=== PATIENT | male | born 1960 | race Caucasian/White ===

== ENCOUNTER 2018-05-22 21:30 | Observation (INO) | payer BC, OTHER ==
[~2018-05-22] VITALS: Ht 180.3 cm; Wt 90.9 kg
[2018-05-22] MEDS ORDERED: BYST5TAB2 (21:46)
[2018-05-22] MEDS ORDERED: HYDR12CA (21:46)
[2018-05-22] MEDS ORDERED: ATOR1TAB21 (21:46)
[2018-05-22] MEDS ORDERED: OLME40TA (21:46)
[2018-05-22 22:09] LABS: BASO % 0.6 % (0.0-1.0); EOS % 0.3 % (0.0-3.0); HEMATOCRIT 41.3 % (42.0-52.0); HEMOGLOBIN 14.7 g/dl (13.5-17.5); LYMPH # 1.4 10^3/uL (1.5-4.5); LYMPH % 20.4 % (24.0-44.0); MEAN CORPUSCULAR HEMOGLOBIN 31.5 pg (27.0-33.0); MEAN CORPUSCULAR HGB CONC 35.6 g/dl (32.0-36.5); MEAN CORPUSCULAR VOLUME 88.4 fl (80.0-96.0); MONO % 14.2 % (0.0-5.0); NEUTROPHILS # 4.5 10^3/uL (1.8-7.7); NEUTROPHILS % 64.2 % (36.0-66.0); PLATELET COUNT, AUTOMATED 140 10^3/uL (150-450); RED BLOOD COUNT 4.67 10^6/uL (4.30-6.10)
[2018-05-22] MEDS ORDERED: KETOROLAC 30 MG/ML VIAL (J1885) IV ONE (22:30)
[2018-05-22] MEDS ORDERED: ONDANSETRON 4MG/2ML VIAL (J2405) IV ONE (22:30)
[2018-05-22] MEDS ORDERED: NS 1,000 ML IV ONE (22:30)
[2018-05-22 22:31] LABS: ALT/SGPT 70 U/L (12-78); BILIRUBIN,DIRECT 0.2 MG/DL (0.0-0.2); BILIRUBIN,TOTAL 0.7 MG/DL (0.2-1.0); BLOOD UREA NITROGEN 14 MG/DL (7-18); CALCIUM LEVEL 8.7 MG/DL (8.5-10.1); CARBON DIOXIDE LEVEL 27 MEQ/L (21-32); CHLORIDE LEVEL 100 MEQ/L (98-107); GLOMERULAR FILTRATION RATE > 60.0 (>56); GLUCOSE, FASTING 111 MG/DL (70-100); LIPASE 202 U/L (73-393); POTASSIUM SERUM 3.3 MEQ/L (3.5-5.1); SODIUM LEVEL 139 MEQ/L (136-145); TOTAL PROTEIN 7.6 GM/DL (6.4-8.2)
[2018-05-22] MEDS ORDERED: MORPHINE 4 MG/ML 1ML VIAL/SYRINGE (J2270) IV ONE (23:45)
--- NOTE | 2018-05-22 23:51 | REPVR ---
EXAM: US Abdomen Limited, Right Upper Quadrant EXAM DATE/TIME: 05/22/2018 11:07 PM CLINICAL HISTORY: 58 years old, male; Pain; Abdominal pain; Acute; Additional info: Ruq pain TECHNIQUE: Real-time ultrasound of the abdomen with image documentation. Examination was focused on the right upper quadrant. COMPARISON: GALLBLADDER US 06/22/2012 8:40 AM FINDINGS: Liver: There is a diffuse decrease in hepatic parenchymal density, consistent with fatty infiltration. Gallbladder: Hydropic gallbladder. Small stones or gravel demonstrated within the lumen of the gallbladder Positive sonographic Olivo sign. Common bile duct: Common bile duct measures 5.3 millimeters. Pancreas: Pancreas partially obscured by overlying bowel gas. Right kidney: Right kidney measures 13.7 x 6.2 x 5.8 cm. IMPRESSION: 1. Hydropic gallbladder. Small stones or gravel demonstrated within the lumen of the gallbladder Positive sonographic Olivo sign. Findings consistent with acute cholecystitis. 2. There is a diffuse decrease in hepatic parenchymal density, consistent with fatty infiltration. Electronically signed by: Nic Kaplan On 05/22/2018 23:50:51 PM
[2018-05-23] MEDS ORDERED: LR 1,000 ML IV SCH (01:56)
[2018-05-23] MEDS ORDERED: ACETAMINOPHEN TAB 650MG DOSE (2X325MG) PO PRN (02:00)
[2018-05-23] MEDS ORDERED: NORCO, ANEXSIA 5/325MG TABLET (HYDROcodone/ACETAMINOPHEN) PO PRN (02:00)
[2018-05-23] MEDS ORDERED: MORPHINE 4 MG/ML 1ML VIAL/SYRINGE (J2270) IV PRN (02:00)
[2018-05-23] MEDS ORDERED: KETOROLAC 30 MG/ML VIAL (J1885) IV PRN (02:00)
[2018-05-23] MEDS ORDERED: ONDANSETRON 4MG/2ML VIAL (J2405) IV PRN (02:00)
[2018-05-23] MEDS ORDERED: VITMTA PO (02:24)
[2018-05-23] MEDS ORDERED: HYDR12CA PO (02:24)
[2018-05-23] MEDS ORDERED: FISH1000 PO (02:24)
[2018-05-23] MEDS ORDERED: OLME40TA PO (02:24)
[2018-05-23] MEDS ORDERED: ATOR1TAB21 PO (02:24)
[2018-05-23] MEDS ORDERED: BYST5TAB2 PO (02:24)
[2018-05-23] MEDS ORDERED: ALEV220T26 PO (02:24)
[2018-05-23 08:00] VITALS: BP 143/87
[2018-05-25] MEDS ORDERED: HYDR-3715 PO (11:32)
--- NOTE | 2018-08-01 03:02 | IPN ---
DATE: 05/23/2018 HISTORY: The patient was placed on observation early this morning for upper abdominal pain with known gallstones. His laboratory studies were unremarkable. His gallbladder showed a distended gallbladder with some small stones. On my evaluation at the time of admission he had reported that he was feeling much better. VITAL SIGNS: Show that he has remained afebrile since placement on observation. His pulse is in the 60s and 70s and his blood pressure is good. Room air oxygen saturation is normal. Intake and output is not recorded adequately. PHYSICAL EXAMINATION: The patient is sitting up looking much more comfortable. He is alert and oriented. Heart exam shows a regular rhythm. The lungs are clear. The abdomen is soft. He has bowel sounds present. He has no significant tenderness identified on palpation at this time. IMPRESSION: The patient reports that he is feeling well with resolution of his discomfort. His examination is benign. PLAN: The patient will be discharged. Presumably this was an attack of severe biliary colic. I have recommended that he follow up in my office to consider elective scheduling of a cholecystectomy. He will continue all his usual medications and contact the office for followup. I did recommend a low-fat diet and advised him to return to the emergency department if he notes recurrence of his symptoms.
== END 2018-05-23 09:30 | disposition home or self-care (01) ==
LOC: M ED 21:30 → M ED INP 21:31
PROVIDERS: ADMIT Surgery; ATTEND Surgery
DX: K80.20 Calculus of gallbladder without cholecystitis without obstruction (principal); K76.0 Fatty (change of) liver, not elsewhere classified; I10 Essential (primary) hypertension; E78.49 Other hyperlipidemia; Z79.899 Other long term (current) drug therapy
CPT/HCPCS: 76705; 80048; 80076; 83690; 85025; 96361; 96374; 96375; 99284; J1885; J2270; J2405

== ENCOUNTER 2018-05-24 09:30 | Day surgery (SDC) | payer BC ==
[2018-05-24] VITALS (7 sets, daily range): BP systolic 140–162; BP diastolic 81–92
[~2018-05-24] VITALS: Ht 185.4 cm; Wt 90.9 kg
[~2018-05-24 09:30] MED LIST: ALEV220T26 PO; ATOR1TAB21; ATOR1TAB21 PO; BYST5TAB2; BYST5TAB2 PO; FISH1000 PO; HYDR12CA; HYDR12CA PO; OLME40TA; OLME40TA PO; VITMTA PO
[2018-05-24] MEDS ORDERED: NS 1,000 ML IV ONE (09:45)
[2018-05-24] MEDS ORDERED: PANTOPRAZOLE 40MG INJ (PROTONIX) (C9113) IV ONE (09:45)
[2018-05-24 10:19] LABS: BASO % 0.2 % (0.0-1.0); EOS # 0.1 10^3/uL (0.0-0.50); EOS % 1.1 % (0.0-3.0); HEMATOCRIT 43.7 % (42.0-52.0); LYMPH # 1.1 10^3/uL (1.5-4.5); LYMPH % 24.8 % (24.0-44.0); MEAN CORPUSCULAR HEMOGLOBIN 30.5 pg (27.0-33.0); MEAN CORPUSCULAR HGB CONC 34.3 g/dl (32.0-36.5); MONO # 0.6 10^3/uL (0.0-0.8); MONO % 12.7 % (0.0-5.0); NEUTROPHILS # 2.8 10^3/uL (1.8-7.7); PLATELET COUNT, AUTOMATED 131 10^3/uL (150-450); RED BLOOD COUNT 4.91 10^6/uL (4.30-6.10); WHITE BLOOD COUNT 4.6 10^3/uL (4.0-10.0)
[2018-05-24 10:52] LABS: ALBUMIN 3.8 GM/DL (3.2-5.2); ALT/SGPT 54 U/L (12-78); AMYLASE 23 U/L (25-115); BILIRUBIN,DIRECT 0.3 MG/DL (0.0-0.2); BILIRUBIN,TOTAL 0.9 MG/DL (0.2-1.0); BLOOD UREA NITROGEN 13 MG/DL (7-18); CALCIUM LEVEL 8.6 MG/DL (8.5-10.1); CARBON DIOXIDE LEVEL 27 MEQ/L (21-32); CHLORIDE LEVEL 105 MEQ/L (98-107); CREATININE FOR GFR 0.79 MG/DL (0.70-1.30); GLOMERULAR FILTRATION RATE > 60.0 (>56); GLUCOSE, FASTING 89 MG/DL (70-100); LIPASE 178 U/L (73-393); POTASSIUM SERUM 3.8 MEQ/L (3.5-5.1); SODIUM LEVEL 140 MEQ/L (136-145); TOTAL PROTEIN 7.5 GM/DL (6.4-8.2)
--- NOTE | 2018-05-24 11:20 | REP ---
RIGHT UPPER QUADRANT ULTRASOUND: Real-time sonographic evaluation of the right upper quadrant performed and compared to prior study of 05/22/2018. Gallbladder is significantly distended. It contains sludge and stones. There is gallbladder wall thickening up to 5 mm. Patient is tender at that location. Findings suggest cholecystitis. Common bile duct is upper limits of normal at 7 mm. There is mild diffuse increased echotexture of the liver suggesting some degree of diffuse fibrofatty infiltration. No gross liver or pancreatic mass is seen. Pancreas is not optimally seen due to overlying bowel gas. Right kidney demonstrates no hydronephrosis with length of 12.2 cm. IMPRESSION: Distended gallbladder contains sludge and stones and there is mild diffuse wall thickening. Patient is tender at that location. Findings suggest cholecystitis. Common bile duct upper limits of normal at 7 mm. Electronically Signed by Italo De MD 05/24/2018 05:03 P
[2018-05-24] MEDS ORDERED: BUPIVACAINE HCL 0.25% 30 ML VIAL As Ordered ONE (11:55)
[2018-05-24] MEDS: LR 1,000 ML IV SCH ×2 (11:59→18:15)
[2018-05-24] MEDS ORDERED: LIDOCAINE 2% INJ 100 MG/5 ML SDV (FOR ANES.) As Ordered ONE (12:27)
[2018-05-24] MEDS ORDERED: ROCURONIUM BROMIDE 50 MG/5 ML VIAL As Ordered ONE (12:27)
[2018-05-24] MEDS ORDERED: ONDANSETRON 4MG/2ML VIAL (J2405) As Ordered ONE ×2 (12:28→14:24)
[2018-05-24] MEDS ORDERED: fentaNYL 250 MCG/5 ML INJECTION (J3010) As Ordered ONE (12:28)
[2018-05-24] MEDS ORDERED: MIDAZOLAM INJ 2 MG/2 ML VIAL (J2250) As Ordered ONE (12:28)
[2018-05-24] MEDS ORDERED: PROPOFOL 200 MG/20 ML VIAL As Ordered ONE (12:28)
[2018-05-24] MEDS ORDERED: dexameTHASONE 4 MG/ML 1ML VIAL (J1100) As Ordered ONE ×2 (12:28→12:29)
[2018-05-24] MEDS ORDERED: cefoTEtan DISODIUM 2 GM in D5W MINI-BAG PLUS 50 ML IV ONE (12:30)
[2018-05-24] MEDS ORDERED: cefoTEtan INJ 2GM VIAL (S0074 PER 500MG) As Ordered ONE (13:45)
[2018-05-24] MEDS ORDERED: ePHEDrine SULFATE 25 MG/5 ML(5MG/ML) SYRINGE As Ordered ONE (14:01)
[2018-05-24] MEDS ORDERED: KETOROLAC 60 MG/2 ML VIAL (J1885) As Ordered ONE (14:16)
[2018-05-24] MEDS ORDERED: NEOSTIGMINE 10 MG/10 ML VIAL (J2710) As Ordered ONE (14:16)
[2018-05-24] MEDS ORDERED: HYDROmorphone HCL 2 MG/ML 1ML VIAL (J1170) As Ordered ONE (14:16)
[2018-05-24] MEDS ORDERED: GLYCOPYRROLATE INJ 0.2 MG/ML 2 ML VIAL As Ordered ONE (14:16)
[2018-05-24] MEDS ORDERED: BUPIVACAINE LIPOSOME/PF 1.3% 20ML VIAL (13.3MG/ML)(EXPAREL)(C9290 PER1MG) As Ordered ONE (15:09)
[2018-05-24] MEDS ORDERED: IBUPROFEN 600 MG TAB PO PRN (16:00)
[2018-05-24] MEDS ORDERED: MORPHINE 4 MG/ML 1ML VIAL/SYRINGE (J2270) IV PRN (16:00)
[2018-05-24] MEDS ORDERED: ACETAMINOPHEN TAB 650MG DOSE (2X325MG) PO PRN (16:00)
[2018-05-24] MEDS ORDERED: ONDANSETRON 4MG/2ML VIAL (J2405) IV PRN (16:15)
[2018-05-24] MEDS ORDERED: NORCO, ANEXSIA 5/325MG TABLET (HYDROcodone/ACETAMINOPHEN) PO PRN (16:15)
[2018-05-24] MEDS ORDERED: LR 1,000 ML IV SCH (16:15)
[2018-05-24] MEDS ORDERED: fentaNYL 100 MCG/2 ML INJECTION (J3010) IV PRN (16:15)
[2018-05-24] MEDS: NORCO, ANEXSIA 5/325MG TABLET (HYDROcodone/ACETAMINOPHEN) PO PRN ×2 (18:33→22:21)
[2018-05-25 02:00] VITALS: BP 122/76
[2018-05-25] MEDS: LR 1,000 ML IV SCH (03:43)
[2018-05-25 06:00] VITALS: BP 123/77
--- NOTE | 2018-05-25 07:33 | RO ---
DATE OF PROCEDURE: 05/24/2018 PREOPERATIVE DIAGNOSIS: Cholelithiasis with acute cholecystitis. POSTOPERATIVE DIAGNOSIS: Cholelithiasis with acute cholecystitis. PROCEDURE PERFORMED: Laparoscopic cholecystectomy. SURGEON: Dr. Lamont Mackey [employer] SALES CONSULTANT: Robin Aguirre MS III ANESTHESIA: General. INDICATIONS FOR THE PROCEDURE: The patient is a 58-year-old man with known cholelithiasis. He presented on May 22 with an episode of severe upper abdominal pain. I was consulted. It was unclear if this represented just a somewhat prolonged attack of biliary colic or early acute cholecystitis. He seemed to be improved on the morning of May 23 and was discharged home. The patient reported that he developed recurrence of his pain on the evening of the and returned to the emergency department with some persistent pain on the morning of May 24. A repeat ultrasound showed a dilated gallbladder with some gallbladder wall thickening consistent with early acute cholecystitis. He is now for a laparoscopic cholecystectomy. OPERATIVE PROCEDURE: The patient was placed under general endotracheal anesthesia. The patient's abdomen was prepped and draped in a sterile fashion. 0.25% Marcaine was infiltrated at each of the trocar sites. A short supraumbilical midline incision was made. This was deepened to the fascia. A Veress needle was inserted and after a positive hanging drop test the abdomen was insufflated with carbon dioxide gas. A short longitudinal fascial incision was made and an 11 mm trocar was then placed along the midline without difficulty. Initial inspection showed a row of adhesions along the midline beginning just above the insertion site of the supraumbilical trocar and extending inferiorly toward the pelvis. He did have an old low midline scar from a prior open appendectomy. There did not appear to be any significant adhesions in the upper abdomen. Examination of the gallbladder revealed this to be tensely distended and markedly erythematous and edematous consistent with acute cholecystitis. The liver and stomach appeared normal. A 5 mm trocar was placed in the left upper quadrant. Two 5 mm trocars were placed in the right upper quadrant. The patient was tilted to a reverse Trendelenburg position and rolled somewhat to the left. The gallbladder was aspirated using an aspirating needle and was then grasped and elevated. There was some prominent fibrofatty tissue around the area of the gallbladder neck. The peritoneum was opened widely using the hook cautery and dissection proceeded carefully. There was significant edema noted in the pericholecystic tissues. A small vessel was identified that appeared to extend up onto the gallbladder and this was divided with cautery. With further dissection, the cholecystic artery was clearly identified coming up on the medial aspect of the gallbladder. This was clipped and divided. With further dissection, the cystic duct was clearly identified and this was clipped and divided. Some remaining tissues around the gallbladder neck were divided with the hook cautery. The gallbladder was then dissected free from the gallbladder bed using the spatula cautery. The gallbladder was not perforated in the course of dissection. The gallbladder was placed in an Endopouch. The right upper quadrant was irrigated and inspected. There were two small bleeding points on the gallbladder bed and these were controlled with the cautery. Repeat inspection revealed no evidence of bleeding or bile leak. The right upper quadrant was thoroughly irrigated and the irrigation was removed. Final inspection again showed no bleeding or bile leak. The patient was returned to a flat position. The abdomen was deflated and the trocars were all removed. The gallbladder was recovered through the supraumbilical site. This necessitated extending the incision very slightly to allow passage of the gallbladder. This was sent for permanent pathology. The fascia at the supraumbilical site was closed with interrupted simple suture. The wounds were then infiltrated with a mixture of 20 mL of Exparel with 10 mL of 0.25% Marcaine. This was infiltrated widely around all of the incisions. The skin incisions were then closed with buried #5-0 Vicryl. Dermabond was applied over the incisions. The patient was then awakened in the operating room, extubated and moved to the recovery room in stable condition.
[2018-05-25] MEDS ORDERED: NEBIVOLOL 5 MG TAB (BYSTOLIC) PO SCH (09:00)
[2018-05-25] MEDS ORDERED: hydroCHLOROthiazide 12.5 MG CAPSULE PO SCH (09:00)
[2018-05-25] MEDS ORDERED: ATORVASTATIN 20 MG TAB PO SCH (09:00)
[2018-05-25 09:18] VITALS: BP 123/77
[2018-05-25 10:00] VITALS: BP 144/86
[2018-05-25] MEDS ORDERED: NORCOTAB PO (11:32)
--- NOTE | 2018-05-25 19:00 | HPE ---
DATE OF ADMISSION: 05/23/2018 DIAGNOSIS: Prolonged biliary colic versus early acute cholecystitis. HISTORY OF PRESENT ILLNESS: The patient is a very pleasant 58-year-old man who had presented to the emergency room on the evening of May 22 complaining of upper abdominal pain. He reported that the pain had started at about 06:00 p.m. on the . He arrived at the emergency department at 2130. The patient has a history of known gallstones and has had some infrequent attacks of upper abdominal pain. I had actually seen him back in 2012 after one such attack and after discussion, he had elected not to proceed with elective cholecystectomy. On this occasion he described pain in the right upper quadrant going around the back as well as some nausea but had no vomiting. In the emergency department he underwent evaluation with some laboratory studies which showed a normal white blood cell count and differential. His liver function tests were normal. A gallbladder ultrasound was obtained which was interpreted by the radiologist as showing a distended gallbladder with some small stones or gravel within the lumen. There reportedly was a positive sonographic Olivo sign. There was no gallbladder wall thickening described. I was consulted. On my evaluation the patient reported that he was feeling much better. He had some pressure or fullness still in the right upper quadrant but on exam he had minimal tenderness. It was unclear if this represented a prolonged attack of biliary colic or perhaps early acute cholecystitis and the plan was to place him on observation status overnight to see how things would shake out. ALLERGIES: The patient reports NO KNOWN DRUG ALLERGIES. MEDICATIONS: Medications at the time of admission include atorvastatin 20 mg p.o. daily, hydrochlorothiazide 12.5 mg p.o. daily multivitamin 1 tablet daily, naproxen 440 mg po twice daily as needed for pain and nebivolol 5 mg by mouth daily and olmesartan medoxomil 40 mg by mouth daily. SURGICAL HISTORY: Significant for a appendectomy in the distant past. MEDICAL HISTORY: Significant for hypertension and hyperlipidemia. SOCIAL HISTORY: The patient is a nonsmoker. He does admit to occasional alcohol. He is and his accompanied him to the emergency department. FAMILY HISTORY: There is a history of gallstones and his sister and mother have both had surgery. REVIEW OF SYSTEMS: Reveals no history of chest pain or palpitations. He denies any shortness of breath, cough or wheezing. He has had no melena, hematochezia, peptic ulcer disease, hepatitis, pancreatitis or yellow jaundice. He denies any bone or joint issues currently. There is no history of DVT or pulmonary embolus. PHYSICAL EXAM: Reveals a pleasant man in no acute distress at the time of my exam. His most recent vital signs show him to be afebrile with a pulse of 70. His temperature had been elevated at the time of presentation but this has come down. He is alert, oriented and cooperative. Skin: Is warm and dry. Sclerae are anicteric. Neck is without mass. Heart exam shows a regular rate and rhythm. The lungs are clear to auscultation bilaterally. The abdomen is flat. He has an old low midline scar. He does have some bowel sounds present in all four quadrants. The abdomen is soft throughout. He has some very mild direct tenderness on deep palpation in the right subcostal area. Extremities are without edema. He has palpable radial and pedal pulses. LABS: His laboratory studies showed a white count of 7000 with a hemoglobin of 15, hematocrit of 41 and platelet count of 140,000. Differential count was without significant abnormality. Chemistry profile showed his potassium minimally depressed at 3.3 and his glucose minimally elevated at 111, it was otherwise normal. The ultrasound result is as noted in the history of present illness. IMPRESSION: Right upper quadrant pain possibly prolonged biliary colic versus early acute cholecystitis. The patient reports that his discomfort has diminished markedly. He has now had any discomfort for approximately 6-8 hours. PLAN: The patient will be placed on observation status overnight. If he has continuing pain or tenderness in the morning than proceeding with laparoscopic cholecystectomy would be reasonable. If his discomfort has resolved and he is able to tolerate a diet we will discharge him home. He is scheduled to go on vacation this next weekend with travel to [facility] this following Monday. He will not be started on antibiotics at this point. I will keep him nothing by mouth and give him IV fluids overnight and analgesics as necessary.
== END 2018-05-25 11:53 | disposition home or self-care (01) ==
LOC: M ED 09:30 → M SDC 11:59 → M MSPAV 16:50 → M SDC 05-25 11:53
PROVIDERS: ATTEND Surgery
DX: K80.12 Calculus of gallbladder with acute and chronic cholecystitis without obstruction (principal); I10 Essential (primary) hypertension; E78.5 Hyperlipidemia, unspecified; K21.9 Gastro-esophageal reflux disease without esophagitis
CPT/HCPCS: 47562; 76705; 80048; 80076; 82150; 83690; 85025; 88304; 96374; 99284; C9113; C9290; J1100; J1170; J1885; J2250; J2405; J2710; J3010

== ENCOUNTER 2019-05-28 09:14 | Inpatient (IN) | payer BC ==
[~2019-05-28] VITALS: Ht 185.4 cm; Wt 94.9 kg
[~2019-05-28 09:14] MED LIST changes: +HYDR-3715 PO
[2019-05-28 10:42] LABS: BASO % 0.3 % (0.0-1.0); EOS % 0.3 % (0.0-3.0); HEMATOCRIT 45.4 % (42.0-52.0); HEMOGLOBIN 16.1 g/dl (13.5-17.5); LYMPH # 1.5 10^3/uL (1.5-5.0); LYMPH % 14.6 % (24.0-44.0); MEAN CORPUSCULAR HEMOGLOBIN 31.3 pg (27.0-33.0); MEAN CORPUSCULAR HGB CONC 35.5 g/dl (32.0-36.5); MEAN CORPUSCULAR VOLUME 88.3 fl (80.0-96.0); MONO # 0.7 10^3/uL (0.0-0.8); MONO % 7.1 % (0.0-5.0); NEUTROPHILS # 7.8 10^3/uL (1.5-8.5); NEUTROPHILS % 77.3 % (36.0-66.0); PLATELET COUNT, AUTOMATED 185 10^3/uL (150-450); RED BLOOD COUNT 5.14 10^6/uL (4.30-6.10); WHITE BLOOD COUNT 10.1 10^3/uL (4.0-10.0)
[2019-05-28] MEDS ORDERED: NS 1,000 ML IV ONE ×2 (11:00→13:30)
[2019-05-28] MEDS ORDERED: KETOROLAC 30 MG/ML VIAL (J1885) IV ONE (11:00)
[2019-05-28] MEDS ORDERED: ONDANSETRON 4MG/2ML VIAL (J2405) IV ONE (11:00)
[2019-05-28] MEDS ORDERED: PANTOPRAZOLE 40MG INJ (PROTONIX) (C9113) IV ONE (11:00)
[2019-05-28 11:02] LABS: APPEARANCE, URINE HAZY (CLEAR); BACTERIA, URINE AUTO NEGATIVE (NEGATIVE); BILIRUBIN, URINE AUTO NEGATIVE (NEGATIVE); BLOOD, URINE BLOOD NEGATIVE (NEGATIVE); COLOR, URINE AMBER (YELLOW); GLUCOSE, URINE (UA) AUTO NEGATIVE (NEGATIVE); KETONE, URINE AUTO 2+ mg/dL (NEGATIVE); LEUKOCYTE ESTERASE, URINE AUTO NEGATIVE (NEGATIVE); MUCUS, URINE LARGE (NEGATIVE); NITRITE, URINE AUTO NEGATIVE (NEGATIVE); PROTEIN, URINE AUTO 1+ mg/dL (NEGATIVE); RBC, URINE AUTO 4 /HPF (0-3); SPECIFIC GRAVITY URINE AUTO 1.033 (1.002-1.035); SQUAMOUS EPITHELIAL CELL UR AU 0 /HPF (0-6); WBC, URINE AUTO 5 /HPF (0-3)
[2019-05-28 11:14] LABS: ALBUMIN 4.2 GM/DL (3.2-5.2); BILIRUBIN,DIRECT 0.4 MG/DL (0.0-0.2); BILIRUBIN,TOTAL 1.2 MG/DL (0.2-1.0); TOTAL PROTEIN 7.6 GM/DL (6.4-8.2)
[2019-05-28] MEDS ORDERED: ISOVUE-370 76% 100ML VIAL (Q9967) As Ordered ONE (11:35)
--- NOTE | 2019-05-28 13:05 | REP ---
CT of the abdomen and pelvis without and with IV contrast. Without bowel contrast: Comparison is the right upper quadrant abdominal ultrasound dated 05/24/2018. The visualized lung rodriguez are unremarkable. Cardiac size is normal. The hepatic parenchyma is homogeneous on all phases of the study. There are surgical clips in the gallbladder fossa suggesting an interim cholecystectomy from the comparison ultrasound. There is no biliary duct dilatation. There is no para hepatic focal fluid collection. There is no focal fluid collection in the gallbladder fossa. The The pancreas is unremarkable. The spleen is unremarkable. The adrenals are unremarkable. There are no renal calculi. There is no perinephric stranding. There is no hydronephrosis. There are no renal masses or cysts. The abdominal aorta is unremarkable. There is no periaortic adenopathy, mass or hematoma. The entire small bowel is dilated, predominately with fluid although there are occasional air-fluid levels. There are surgical clips compatible with bowel surgery in the right lower quadrant, likely at the junction of the terminal ileum and ascending colon. The small bowel appears to be dilated to the level of the surgical clips. The colon is not distended. The findings are compatible with small distal small bowel obstruction. There is diverticulosis of the descending colon and sigmoid colon. There is no CT evidence of diverticulitis. Pelvis: There is no ascites. There is no adenopathy. The bladder is unremarkable. There is no pneumoperitoneum. Impression: Findings are compatible with small bowel obstruction, the obstructive site is probably at the terminal ileum were there are surgical clips. There is a cholecystectomy. There is no ascites. There is no pneumoperitoneum. There is diverticulosis without diverticulitis. Electronically Signed by Italo Haines MD 05/28/2019 12:57 P
[2019-05-28] MEDS ORDERED: METOCLOPRAMIDE INJ 10MG/2ML VIAL (J2765) IV ONE (13:15)
[2019-05-28] MEDS ORDERED: MORPHINE 4 MG/ML 1ML VIAL/SYRINGE (J2270) As Ordered ONE (13:43)
[2019-05-28] MEDS ORDERED: MORPHINE 4 MG/ML 1ML VIAL/SYRINGE (J2270) IV ONE ×2 (13:45→16:30)
[2019-05-28] MEDS: LR 1,000 ML IV SCH ×2 (15:00→22:16)
[2019-05-28] MEDS ORDERED: ONDANSETRON 4MG/2ML VIAL (J2405) IV PRN ×2 (16:30→21:30)
[2019-05-28] MEDS ORDERED: MORPHINE 4 MG/ML 1ML VIAL/SYRINGE (J2270) IV PRN (16:45)
[2019-05-28 19:00] VITALS: BP 126/66
[2019-05-28] MEDS ORDERED: ACETAMINOPHEN TAB 650MG DOSE (2X325MG) PO PRN (21:30)
[2019-05-28] MEDS ORDERED: MOM 30ML SUSPENSION UDC PO PRN (21:30)
[2019-05-28] MEDS ORDERED: KETOROLAC 30 MG/ML VIAL (J1885) IV PRN (21:30)
[2019-05-28 22:00] VITALS: BP 133/82
[2019-05-28] MEDS: PIPERACILLIN/TAZOBACTAM SOD 3.375 GM in D5W MINI-BAG PLUS 50 ML IV SCH (22:16)
[2019-05-28] MEDS: SENOKOT S TAB PO SCH (22:16)
[2019-05-29] MEDS: PIPERACILLIN/TAZOBACTAM SOD 3.375 GM in D5W MINI-BAG PLUS 50 ML IV SCH ×2 (04:12→09:19)
[2019-05-29 06:00] VITALS: BP 141/80
[2019-05-29 06:38] LABS: HEMATOCRIT 40.4 % (42.0-52.0); HEMOGLOBIN 14.2 g/dl (13.5-17.5); MEAN CORPUSCULAR HEMOGLOBIN 31.5 pg (27.0-33.0); MEAN CORPUSCULAR HGB CONC 35.1 g/dl (32.0-36.5); MEAN CORPUSCULAR VOLUME 89.6 fl (80.0-96.0); PLATELET COUNT, AUTOMATED 143 10^3/uL (150-450); RED BLOOD COUNT 4.51 10^6/uL (4.30-6.10); WHITE BLOOD COUNT 8.1 10^3/uL (4.0-10.0)
[2019-05-29 07:00] LABS: BLOOD UREA NITROGEN 17 MG/DL (7-18); CARBON DIOXIDE LEVEL 26 MEQ/L (21-32); CHLORIDE LEVEL 109 MEQ/L (98-107); CREATININE FOR GFR 0.94 MG/DL (0.70-1.30); GLOMERULAR FILTRATION RATE > 60.0 (>56); GLUCOSE, FASTING 99 MG/DL (70-100); POTASSIUM SERUM 3.5 MEQ/L (3.5-5.1); SODIUM LEVEL 140 MEQ/L (136-145)
[2019-05-29 07:01] LABS: ALBUMIN 3.2 GM/DL (3.2-5.2); ALT/SGPT 28 U/L (12-78); BILIRUBIN,TOTAL 1.5 MG/DL (0.2-1.0); CALCIUM LEVEL 8.1 MG/DL (8.5-10.1); MAGNESIUM LEVEL 2.1 MG/DL (1.8-2.4); TOTAL PROTEIN 6.5 GM/DL (6.4-8.2)
[2019-05-29] MEDS ORDERED: ENOXAPARIN 40 MG/0.4 ML SYRINGE (J1650) SC SCH (09:00)
[2019-05-29] MEDS ORDERED: OLMESARTAN MEDOXOMIL 20 MG TAB (BENICAR) PO SCH (09:00)
[2019-05-29] MEDS ORDERED: NEBIVOLOL 5 MG TAB (BYSTOLIC) PO SCH (09:00)
[2019-05-29] MEDS: SENOKOT S TAB PO SCH (09:00)
[2019-05-29] MEDS ORDERED: ATORVASTATIN 20 MG TAB PO SCH (09:00)
[2019-05-29] MEDS ORDERED: hydroCHLOROthiazide 12.5 MG CAPSULE PO SCH (09:00)
[2019-05-29 09:21] VITALS: BP 141/80
[2019-05-29] MEDS: LR 1,000 ML IV SCH (09:40)
--- NOTE | 2019-05-29 20:44 | ECGEPIP ---
[facility] - ED Test Date: 2019-05-28 Pat Name: GRANT MITCHELL Department: Room: - Gender: Male Blood Typer: : 1960 Requested By: Erika Grace [employer] Order Number: [id number] Reading MD: Cecilia Robins Measurements Intervals [place] Rate: 66 P: 20 HI: 163 QRS: 7 QRSD: 108 T: 8 QT: 395 QTc: 415 Interpretive Statements SINUS RHYTHM NO PRIOR Electronically Signed on 05-29-2019 20:44:21 EDT by Cecilia Robins
--- NOTE | 2019-05-30 10:28 | HPE ---
DATE OF ADMISSION: 05/28/2019 CHIEF COMPLAINT: Small bowel obstruction. HISTORY OF PRESENT ILLNESS: The patient is a 59-year-old male who presented to the emergency room yesterday afternoon with complaints of nausea, abdominal distention and crampy abdominal pains. This had been going on since Monday. When he came into emergency room, he did not have much emesis, but his main complaint was the abdominal pains and cramping. Labs were stable. However, CT scan did reveal that there is a likely obstruction near his terminal ileum where there were some clips in place from a prior surgery. The patient this morning is doing much better. He had 8 loose large bowel movements overnight. His abdominal pain and distention is completely resolved. No nausea or vomiting. No fevers or chills. He claims he had a cholecystectomy done last May. He also had open appendectomy for a perforated appendix done over 30 years ago. That surgery also resulted in removing a portion of his colon. That coincides with the exact location of where this obstruction appeared to be on his CAT scan. He says ever since then he has never had any problems like this before. This is the first time he has ever had any obstructive symptoms. No changes in activity or diet in the last week. No recent illnesses. No other recent surgeries other than his cholecystectomy. Past medical history of hypertension, hyperlipidemia. PAST SURGICAL HISTORY: Open appendectomy and laparoscopic cholecystectomy. ALLERGIES: None. HOME MEDICATIONS: Please see med record. SOCIAL HISTORY: Denies drug, alcohol or tobacco abuse. FAMILY HISTORY: Noncontributory. REVIEW OF SYSTEMS: Pertinent positives and negatives as stated in HPI. PHYSICAL EXAMINATION: General: Alert and oriented x3, in no acute distress. Vitals: Temperature 95, pulse 64, respirations 16, blood pressure 126/66, pulse oximetry 94%. HEENT: Pupils equally round and react to light and accommodation. Heart: S1, S2. Regular rate and rhythm. Lungs: Clear to auscultation bilaterally. Abdomen: Soft, nontender, nondistended. No signs of any ventral hernias. Extremities: No clubbing, cyanosis or edema. LABORATORY DATA: White count 10.1 on admission, 8.1 this morning. Hemoglobin 14.2. Platelets 143. Potassium 3.5. Creatinine 0.94. Magnesium 2.1. IMAGING STUDIES: CT of abdomen and pelvis showed diverticulosis in the descending and sigmoid colon No CT evidence for diverticulitis. No ascites. No adenopathy. There is a small bowel obstruction with obstructive site near the terminal ileum where there are surgical clips in place. ASSESSMENT/PLAN: The patient is a 59-year-old male with small bowel obstruction likely secondary to either adhesions or stricture from his previous surgical anastomosis in the ileocolic junction in the right lower quadrant. At this time, he has resolved the obstruction. He had 8 bowel movements overnight. He feels completely improved. All of his symptoms have resolved. Recommendation at this time is to advance his diet and discharge him home. I have explained him that this could have been secondary to either stricturing at his anastomosis from prior surgery or due to adhesions. Either way, at this point, since his symptoms have resolved, there is no indication for any further workup, whether it be small bowel follow-through versus endoscopy. He did have a normal colonoscopy 6 years ago and is not ready for repeat yet. I explained him that if these symptoms do come back soon, he should come to see me in the office and we will plan further workup and determine whether this is something that needs to be surgically corrected or not. All of his questions were answered and he will be discharged home this morning. No new medications. He will follow up me in the office as needed.
== END 2019-05-29 13:25 | disposition home or self-care (01) | DRG 247 ==
LOC: M ED 09:14 → M ED INP 14:00 → ENRESERVDT 17:01 → ENRESERVTM 17:01 → M MS5PR 18:00
PROVIDERS: ADMIT Surgery; ATTEND Surgery
DX: K56.609 Unspecified intestinal obstruction, unspecified as to partial versus complete obstruction (principal); E78.5 Hyperlipidemia, unspecified; I10 Essential (primary) hypertension; Z90.49 Acquired absence of other specified parts of digestive tract; Z79.899 Other long term (current) drug therapy

== ENCOUNTER → 2021-03-31 | Outpatient (REF) | payer BC | LOC: M LAB REF 16:25 | PROVIDERS: ATTEND Physician Assistant Medical | DX: J02.9 Acute pharyngitis, unspecified (principal) ==

== ENCOUNTER → 2022-09-15 | Outpatient (CLI) | payer BC ==
[2022-09-15 08:15] LABS: APPEARANCE, URINE HAZY (CLEAR); BACTERIA, URINE AUTO NEGATIVE (NEGATIVE); BILIRUBIN, URINE AUTO NEGATIVE (NEGATIVE); BLOOD, URINE BLOOD NEGATIVE (NEGATIVE); COLOR, URINE YELLOW (YELLOW); GLUCOSE, URINE (UA) AUTO NEGATIVE (NEGATIVE); KETONE, URINE AUTO NEGATIVE (NEGATIVE); LEUKOCYTE ESTERASE, URINE AUTO NEGATIVE (NEGATIVE); MUCUS, URINE SMALL (NEGATIVE); NITRITE, URINE AUTO NEGATIVE (NEGATIVE); PROTEIN, URINE AUTO NEGATIVE (NEGATIVE); RBC, URINE AUTO 0 /HPF (0-3); SPECIFIC GRAVITY URINE AUTO 1.019 (1.002-1.035); SQUAMOUS EPITHELIAL CELL UR AU 0 /HPF (0-6); UROBILINOGEN, URINE AUTO 0.2 mg/dL (0.0-2.0); WBC, URINE AUTO 0 /HPF (0-3)
[2022-09-15 08:16] LABS: BASO % 0.8 % (0.0-1.0); EOS # 0.1 10^3/uL (0.0-0.5); EOS % 2.3 % (0.0-3.0); HEMATOCRIT 44.6 % (42.0-52.0); HEMOGLOBIN 15.4 g/dl (13.5-17.5); LYMPH # 1.8 10^3/uL (1.5-5.0); LYMPH % 33.8 % (24.0-44.0); MEAN CORPUSCULAR HEMOGLOBIN 31.5 pg (27.0-33.0); MEAN CORPUSCULAR HGB CONC 34.5 g/dl (32.0-36.5); MEAN CORPUSCULAR VOLUME 91.2 fl (80.0-96.0); MONO # 0.5 10^3/uL (0.0-0.8); MONO % 9.5 % (2.0-8.0); NEUTROPHILS # 2.8 10^3/uL (1.5-8.5); NEUTROPHILS % 53.4 % (36.0-66.0); PLATELET COUNT, AUTOMATED 155 10^3/uL (150-450); RED BLOOD COUNT 4.89 10^6/uL (4.30-6.10); WHITE BLOOD COUNT 5.3 10^3/uL (4.0-10.0)
[2022-09-15 08:44] LABS: CREATININE, URINE 191.4 MG/DL; CREATININE,RANDOM URINE 191.4 MG/DL
[2022-09-15 08:45] LABS: MALB URINE SIEMENS < 3.0 MG/L; MAU/CREAT RATIO 1.5 MCG/MG (0.0-30.0)
[2022-09-15 08:46] LABS: ALBUMIN 3.8 G/DL (3.2-5.2); ALKALINE PHOSPHATASE 119 U/L (46-116); ALT/SGPT 41 U/L (7.0-40); AST/SGOT 24 U/L (<34); BILIRUBIN,TOTAL 0.8 MG/DL (0.3-1.2); BLOOD UREA NITROGEN 14 MG/DL (9-23); CALCIUM LEVEL 9.8 MG/DL (8.3-10.6); CARBON DIOXIDE LEVEL 28 MMOL/L (20-31); CHLORIDE LEVEL 107 MMOL/L (98-107); CREATININE FOR GFR 0.83 MG/DL (0.70-1.30); GLOMERULAR FILTRATION RATE > 60.0 (>49); GLUCOSE, FASTING 92 MG/DL (74-106); POTASSIUM SERUM 4.3 MMOL/L (3.5-5.1); SODIUM LEVEL 136 MMOL/L (136-145)
== END ==
LOC: M LAB 06:40
PROVIDERS: ATTEND Family Medicine
DX: E78.5 Hyperlipidemia, unspecified (principal); I10 Essential (primary) hypertension

== ENCOUNTER → 2024-12-03 | Outpatient (REF) | payer BC, OTHER ==
[~2024-12-03] MED LIST changes: +BYST1TAB2; +BYST1TAB2 PO; -BYST5TAB2; -BYST5TAB2 PO; +HYDR12.510; +HYDR12.510 PO; -HYDR12CA; -HYDR12CA PO
== END ==
LOC: M SFHCDERM 17:28
PROVIDERS: ATTEND Physician Assistant
DX: B35.1 Tinea unguium (principal)

== ENCOUNTER → 2025-02-20 | Outpatient (CLI) | payer OTHER ==
[2025-02-20 08:30] LABS: BASO # 0.0 10^3/uL (0.0-0.2); BASO % 0.6 % (0.0-1.0); EOS # 0.2 10^3/uL (0.0-0.5); EOS % 2.1 % (0.0-3.0); LYMPH # 1.7 10^3/uL (1.5-5.0); LYMPH % 23.9 % (24.0-44.0); MONO # 0.7 10^3/uL (0.0-0.8); MONO % 9.4 % (2.0-8.0); NEUTROPHILS # 4.6 10^3/uL (1.5-8.5); NEUTROPHILS % 63.9 % (36.0-66.0); PLATELET COUNT, AUTOMATED 151 10^3/uL (150-450)
[2025-02-20 08:43] LABS: APPEARANCE, URINE HAZY (CLEAR); BACTERIA, URINE AUTO NEGATIVE (NEGATIVE); BILIRUBIN, URINE AUTO NEGATIVE (NEGATIVE); BLOOD, URINE BLOOD NEGATIVE (NEGATIVE); GLUCOSE, URINE (UA) AUTO NEGATIVE (NEGATIVE); KETONE, URINE AUTO NEGATIVE (NEGATIVE); LEUKOCYTE ESTERASE, URINE AUTO NEGATIVE (NEGATIVE); MUCUS, URINE SMALL (NEGATIVE); NITRITE, URINE AUTO NEGATIVE (NEGATIVE); PROTEIN, URINE AUTO NEGATIVE (NEGATIVE); RBC, URINE AUTO 0 /HPF (0-3); SPECIFIC GRAVITY URINE AUTO 1.023 (1.002-1.035); SQUAMOUS EPITHELIAL CELL UR AU 0 /HPF (0-6); UROBILINOGEN, URINE AUTO 0.2 mg/dL (0.0-2.0); WBC, URINE AUTO 0 /HPF (0-3)
[2025-02-20 08:52] LABS: ALT/SGPT 47 U/L (7.0-40); AST/SGOT 44 U/L (<34); CALCIUM LEVEL 9.7 MG/DL (8.3-10.6); CARBON DIOXIDE LEVEL 30 MMOL/L (20-31); CHLORIDE LEVEL 102 MMOL/L (98-107); CHOLESTEROL LEVEL 159 MG/DL (<200); CHOLESTEROL RISK RATIO 2.64 (<5); CREATININE FOR GFR 0.79 MG/DL (0.70-1.30); GLOMERULAR FILTRATION RATE > 90.0 (>49); LDL CHOLESTEROL 78.7 MG/DL (<100); NON-HDL-C 98.9 MG/DL; POTASSIUM SERUM 4.0 MMOL/L (3.5-5.1); SODIUM LEVEL 141 MMOL/L (136-145); TRIGLYCERIDES LEVEL 101 MG/DL (<150)
== END ==
LOC: M LAB 07:49
PROVIDERS: ATTEND Family Medicine
DX: I10 Essential (primary) hypertension (principal); E78.5 Hyperlipidemia, unspecified